=== PATIENT | female | born 1990 | race Two or more races ===

== ENCOUNTER 2016-07-27 12:19 | Emergency (ER) | payer SELFPAY ==
[~2016-07-27] VITALS: Ht 165.1 cm; Wt 113.4 kg
[2016-07-27] MEDS ORDERED: ONDANSETRON PF 4 MG/2 ML VIAL. IV ONE ×2 (13:45→15:00)
[2016-07-27] MEDS ORDERED: KETOROLAC TROMETHAMINE 30 MG/ML SYRINGE. IV ONE (13:45)
[2016-07-27 13:50] LABS: BILIRUBIN,URINE NEGATIVE (NEG); GLUCOSE,URINE NEGATIVE (NEG); NITRITE,URINE NEGATIVE (NEG); PH,URINE 5.5; PROTEIN,URINE NEGATIVE (NEG-TRACE); UROBILINOGEN,URINE 0.2 mg/dL (0.2 mg/dL)
[2016-07-27 13:59] LABS: BACTERIA,URINE 0 /HPF (0-FEW); RBC,URINE 0 /HPF (0-2); SQUAMOUS EPITHELIAL CELL,UR MOD /LPF; WBC,URINE 20-40 /HPF (0-4)
[2016-07-27 14:23] LABS: OBC FLU VALID
--- NOTE | 2016-07-27 15:10 | EKG ---
[facility] [address] [place] [address] Test Date: 2016-07-27 Test Time: 14:25:15 Pat Name: DRAKE MCELROY Department: Room: Gender: F [employer]: : 1990 Requested By: EDEN HODGES Order Number: [id number] Reading MD: Katarina Urias Measurements Intervals [place] Rate: 73 P: 17 MO: 170 QRS: 46 QRSD: 102 T: 8 QT: 412 QTc: 458 Interpretive Statements SINUS RHYTHM QRS(T) CONTOUR ABNORMALITY CONSIDER INFERIOR MYOCARDIAL DAMAGE ABNORMAL ECG RI6.01 No previous ECG available for comparison Electronically Signed On 07-29-2016 20:22:49 [employer] by Katarina Urias
[2016-07-27 15:36] LABS: BASO % 0 % (0-3); EOS % 1 % (0-3); HEMATOCRIT 28.7 % (36.0-47.0); HEMOGLOBIN 8.1 g/dL (12.0-15.5); LYMPH # 1.7 x10^3/uL (1.0-4.8); LYMPH % 22 % (24-48); MEAN CORPUSCULAR HEMOGLOBIN 19 pg (25-35); MEAN CORPUSCULAR HGB CONC 28 g/dL (31-37); MEAN CORPUSCULAR VOLUME 69 fL (79-100); MONO % 4 % (0-9); NEUT % 73 % (31-73); PLATELET COUNT 277 x10^3/uL (140-400); RED BLOOD COUNT 4.17 x10^6/uL (3.50-5.40); RED CELL DISTRIBUTION WIDTH 17.9 % (11.5-14.5); WHITE BLOOD COUNT 7.7 x10^3/uL (4.0-11.0)
[2016-07-27 15:44] LABS: CALCIUM 8.6 mg/dL (8.5-10.1); CREATININE 0.6 mg/dL (0.6-1.0); GFR 119.9; POTASSIUM 3.3 mmol/L (3.5-5.1)
[2016-07-27 15:50] LABS: ALBUMIN 3.3 g/dL (3.4-5.0); ALBUMIN/GLOBULIN RATIO 0.7 (1.0-1.7); TOTAL BILIRUBIN 0.2 mg/dL (0.2-1.0); TOTAL PROTEIN 8.1 g/dL (6.4-8.2)
--- NOTE | 2016-07-27 16:15 | RAD ---
Abdomen series with chest, 3 views, 07/27/2016: History: Vomiting and abdominal pain Gas is present in scattered portions of the colon a nonspecific pattern. No free air seen in the abdomen. There is no evidence of organomegaly or abnormal abdominal calcification. The heart size is normal. The lungs are clear. There is no evidence of pleural fluid. IMPRESSION: No acute abdominal abnormality is detected.
[2016-07-27 16:59] LABS: PLT ESTIMATE ADEQUATE (ADEQUATE); POLYCHROMASIA SLIGHT
[2016-07-27 17:00] LABS: ANISOCYTOSIS SLIGHT; HYPOCHROMIA MARKED; MICROCYTOSIS MARKED; STOMATOCYTES MOD
[2016-07-27] MEDS ORDERED: ONDA4TAB7 PO (17:09)
[2016-07-27] MEDS ORDERED: DICY10CA53 PO (17:09)
[2016-07-27] MEDS ORDERED: FERR-26 PO (17:11)
[2016-07-27 17:40] VITALS: BP 129/62
--- NOTE | 2016-07-27 19:17 | ED.ADGEN ---
Past Medical History Past Medical History: Anemia, Depression Past Surgical History: No Surgical History Alcohol Use: Occasionally Drug Use: Marijuana Adult General Chief Complaint Chief Complaint: MULTIPLE COMPLAINTS HPI HPI Patient is a 26 year old woman, with a history of anemia, presumed secondary to heavy menses, who presents emergency that began yesterday. Patient states she was nauseous for the past several days, been experiencing vomiting and abdominal cramping late last night into this morning. Her last episode of emesis was several hours ago. No diarrhea. States she's regular bowel movements that occurred this morning. Denies any fevers, any chills, any weakness emesis or tingling, any bad food exposures. 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 No recent travel or surgery, does not take any medications regular basis. Review of Systems Review of Systems Constitutional: Denies fever or chills. [] Eyes: Denies change in visual acuity. [] HENT: Denies nasal congestion or sore throat. [] Respiratory: Denies cough or shortness of breath. [] Cardiovascular: Denies chest pain or edema. [] GI: Denies abdominal pain, nausea, vomiting, bloody stools or diarrhea. [] : Denies dysuria. [] Musculoskeletal: Denies back pain or joint pain. [] Integument: Denies rash. [] Neurologic: Denies headache, focal weakness or sensory changes. [] Endocrine: Denies polyuria or polydipsia. [] Lymphatic: Denies swollen glands. [] Psychiatric: Denies depression or anxiety. [] Current Medications Current Medications Current Medications Medications (Trade) Dose Ordered Sig/Keyana Start Time Stop Time Status Last Admin Dose Admin Ketorolac Tromethamine (Toradol) 10 mg 1X ONCE 07/27/16 13:45 07/27/16 13:46 DC 07/27/16 14:24 10 MG Ondansetron HCl (Zofran) 4 mg 1X ONCE 07/27/16 15:00 07/27/16 15:01 DC Allergies Allergies Allergies Coded Allergies Type Severity Reaction Last Updated Verified No Known Drug Allergies 07/27/16 No Physical Exam Physical Exam Constitutional: Well developed, well nourished, no acute distress, non-toxic appearance. [] HENT: Normocephalic, atraumatic, bilateral external ears normal, oropharynx moist, no oral exudates, nose normal. [] Eyes: PERRLA, EOMI, conjunctiva normal, no discharge. [] Neck: Normal range of motion, no tenderness, supple, no stridor. [] Cardiovascular:Heart rate regular rhythm, no murmur, S1, S2, rubs or gallops. [] Lungs & Thorax: Bilateral breath sounds clear to auscultation , no wheezing, rhonchi, rales. No chest tenderness or crepitus. [] Abdomen: Bowel sounds normal, soft, minimal tenderness all patient in the perianal region, no rebound, rigidity, no guarding, no masses, no pulsatile masses. [] Skin: Warm, dry, no erythema, no rash. [] Back: No tenderness, no CVA tenderness. [] Extremities: No tenderness, no cyanosis, no clubbing, ROM intact, no edema. [] Neurologic: Alert and oriented X 3, normal motor function, normal sensory function, no focal deficits noted. [] Psychologic: Affect normal, judgement normal, mood normal. [] Current Patient Data Vital Signs Vital Signs Date Time Temp Pulse Resp B/P Pulse Ox O2 Delivery O2 Flow Rate FiO2 07/27/16 17:40 71 16 129/62 100 Room Air 07/27/16 13:15 98.2 98.2 Lab Values Laboratory Tests Test 07/27/16 13:00 07/27/16 13:06 07/27/16 13:55 07/27/16 15:05 Urine Collection Type Unknown Urine Color Yellow Urine Clarity Clear Urine pH 5.5 Urine Specific [place] 1.020 Urine Protein Negativemg/dL (NEG-TRACE) Urine Glucose (UA) Negativemg/dL (NEG) Urine Ketones (Stick) Negativemg/dL (NEG) Urine Blood Negative (NEG) Urine Nitrite Negative (NEG) Urine Bilirubin Negative (NEG) Urine Urobilinogen Dipstick 0.2mg/dL (0.2 mg/dL) Urine Leukocyte Esterase Moderate (NEG) Urine RBC 0/HPF (0-2) Urine WBC 20-40/HPF (0-4) Urine Squamous Epithelial Cells Mod/LPF Urine Transitional Epithelial Cells Few/LPF Urine Bacteria 0/HPF (0-FEW) Urine Mucus Marked/LPF POC Urine HCG, Qualitative Hcg negative (Negative) Influenza Type A Antigen Negative (NEGATIVE) Influenza Type B Antigen Negative (NEGATIVE) White Blood Count 7.7x10^3/uL (4.0-11.0) Red Blood Count 4.17x10^6/uL (3.50-5.40) Hemoglobin 8.1g/dL (12.0-15.5) L Hematocrit 28.7% (36.0-47.0) L Mean Corpuscular Volume 69fL (79-100) L Mean Corpuscular Hemoglobin 19pg (25-35) L Mean Corpuscular Hemoglobin Concent 28g/dL (31-37) L Red Cell Distribution Width 17.9% (11.5-14.5) H Platelet Count 277x10^3/uL (140-400) Neutrophils (%) (Auto) 73% (31-73) Lymphocytes (%) (Auto) 22% (24-48) L Monocytes (%) (Auto) 4% (0-9) Eosinophils (%) (Auto) 1% (0-3) Basophils (%) (Auto) 0% (0-3) Neutrophils # (Auto) 5.6x10^3uL (1.8-7.7) Lymphocytes # (Auto) 1.7x10^3/uL (1.0-4.8) Monocytes # (Auto) 0.3x10^3/uL (0.0-1.1) Eosinophils # (Auto) 0.1x10^3/uL (0.0-0.7) Basophils # (Auto) 0.0x10^3/uL (0.0-0.2) Platelet Estimate Adequate (ADEQUATE) Giant Platelets Few Polychromasia Slight Hypochromasia Marked Anisocytosis Slight Microcytosis Marked Macrocytosis Slight Stomatocytes Mod Sodium Level 141mmol/L (136-145) Potassium Level 3.3mmol/L (3.5-5.1) L Chloride Level 104mmol/L (98-107) Carbon Dioxide Level 27mmol/L (21-32) Anion Gap 10 (6-14) Blood Urea Nitrogen 5mg/dL (7-20) L Creatinine 0.6mg/dL (0.6-1.0) Estimated GFR (Cockcroft-Gault) 119.9 BUN/Creatinine Ratio 8 (6-20) Glucose Level 78mg/dL (70-99) Calcium Level 8.6mg/dL (8.5-10.1) Total Bilirubin 0.2mg/dL (0.2-1.0) Aspartate Amino Transferase (AST) 11U/L (15-37) L Alanine Aminotransferase (ALT) 24U/L (14-59) Alkaline Phosphatase 95U/L (46-116) Total Protein 8.1g/dL (6.4-8.2) Albumin 3.3g/dL (3.4-5.0) L Albumin/Globulin Ratio 0.7 (1.0-1.7) L Lipase 96U/L (73-393) Laboratory Tests 07/27/16 15:05 Laboratory Tests 07/27/16 15:05 EKG EKG Not indicated. [] Radiology/Procedures Radiology/Procedures [][facility] [address] [place] [address] IMAGING REPORT Signed PATIENT: DRAKE MCELROY ACCOUNT: [id number] : 1990 LOCATION: ER AGE: 26 SEX: F EXAM STATUS: REG ER ORD. PHYSICIAN: EDEN HODGES DO REASON: abd pain/n/v, PROCEDURE: ACUTE ABDOMEN SERIES Abdomen series with chest, 3 views, 07/27/2016: History: Vomiting and abdominal pain Gas is present in scattered portions of the colon a nonspecific pattern. No free air seen in the abdomen. There is no evidence of organomegaly or abnormal abdominal calcification. The heart size is normal. The lungs are clear. There is no evidence of pleural fluid. IMPRESSION: No acute abdominal abnormality is detected. DICTATED and SIGNED BY: LIVE BUCKLEY MD DATE: 07/27/16 1612 CC: EDEN HODGES DO; NO PCP ~ Course & Med Decision Making Course & Med Decision Making Pertinent Labs and Imaging studies reviewed. (See chart for details) patient with no further vomiting in the emergency department receiving Zofran, abdominal pain is resolved. Acute abdominal series obtained which reveals no evidence of concerning findings, laboratory studies reveal a hemoglobin of 8.1, which patient states is consistent with her previous known anemia, no other concerning abnormalities identified. On reevaluation states she is feeling better, has not not have recurrence of her nausea or abdominal pain since she was given Zofran. She states that she was previously told to take iron for her anemia, but has not been taking the pills. I did recommend that she start the pills up, waiting until her stomach is feeling more stable, as she is likely experiencing a viral illness. Patient voiced understanding and agreement, tolerating by mouth fluids in the ED without issue. We discussed bland diet, use of Zofran and Bentyl as needed, rest, and follow-up with [facility] TECHNICIAN. Patient was given contact information for Dr. Cuba of [facility] on the discharged home with precautions and instructions as stated. Dragon Disclaimer Dragon Disclaimer This electronic medical record was generated, in whole or in part, using a voice recognition dictation system. Departure Impression: Primary Impression: Nausea and vomiting Disposition: 01 HOME, SELF-CARE Condition: IMPROVED Scripts Ferrous Sulfate 325 Mg Tablet1 Tab PO BID #60 TAB Ref 0 Prov:EDEN HODGES DO 07/27/16 Dicyclomine Hcl (Bentyl)10 Mg [id number] Mg PO QID #12 TAB Prov:EDEN HODGES DO 07/27/16 Ondansetron Hcl (Zofran)4 Mg Tablet1 Tab PO PRN Q6-8HRS #12 TAB Prov:EDEN HODGES DO 07/27/16 EDEN HODGES DO Jul 27, 2016 19:16
== END 2016-07-27 17:50 | disposition home or self-care (01) ==
LOC: ER 12:19
DX: R11.2 Nausea with vomiting, unspecified (principal); R10.9 Unspecified abdominal pain; F12.10 Cannabis abuse, uncomplicated
CPT/HCPCS: 36415; 74022; 80053; 81001; 81025; 83690; 85007; 85027; 87086; 87804; 93005; 96374; 96375; 99285; J1885; J2405

== ENCOUNTER 2016-11-23 21:26 | Emergency (ER) | payer OTHER ==
[~2016-11-23] VITALS: Ht 165.1 cm; Wt 124.7 kg
[~2016-11-23 21:26] MED LIST: DICY10CA53 PO; FERR-26 PO; ONDA4TAB7 PO
[2016-11-23 21:40] VITALS: BP 157/67
--- NOTE | 2016-11-23 22:13 | PHYS DOC ---
Past Medical History Past Medical History: Anemia, Depression Past Surgical History: No Surgical History Alcohol Use: Occasionally Drug Use: Marijuana Adult General Chief Complaint Chief Complaint: BACK PAIN OR INJURY [facility] HPI Patient is a 26 year old female presents to the emergency department stating that she tripped and fell at work 2 days ago. She states that she landed on her left knee in which she is having pain and discomfort. She states today she developed back pain and discomfort. She states the pain is in the middle of her back at the lumbar spine area. She denies any loss of bowel or bladder. Patient states that she had taken ibuprofen around 3:00 with minimal relief of pain. Patient is able to ambulate on the left knee without any difficulty. 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 Patient denies any numbness or tingling down into the lower extremities. Review of Systems Review of Systems Constitutional: Denies fever or chills [] Eyes: Denies change in visual acuity, redness, or eye pain [] HENT: Denies nasal congestion or sore throat [] Respiratory: Denies cough or shortness of breath [] Cardiovascular: No additional information not addressed in HPI [] GI: Denies abdominal pain, nausea, vomiting, bloody stools or diarrhea [] : Denies dysuria or hematuria [] Musculoskeletal: Patient complaint of lower back pain, left knee pain Integument: Denies rash or skin lesions [] Neurologic: Denies headache, focal weakness or sensory changes [] Endocrine: Denies polyuria or polydipsia [] Allergies Allergies Allergies Coded Allergies Type Severity Reaction Last Updated Verified No Known Drug Allergies 07/27/16 No Physical Exam Physical Exam Constitutional: Well developed, well nourished, no acute distress, non-toxic appearance. [] HENT: Normocephalic, atraumatic, bilateral external ears normal, oropharynx moist, no oral exudates, nose normal. [] Eyes: PERRLA, EOMI, conjunctiva normal, no discharge. [] Neck: Normal range of motion, no tenderness, supple, no stridor. [] Cardiovascular:Heart rate regular rhythm, no murmur [] Lungs & Thorax: Bilateral breath sounds clear to auscultation [] Abdomen: Bowel sounds normal, soft, no tenderness, no masses, no pulsatile masses. [] Skin: Warm, dry, no erythema, no rash. [] Back: Patient with lumbar spine tenderness no crepitus no deformities and no step-offs noted. Extremities: No tenderness noted over the left knee area. No bruising no discoloration noted. No cyanosis, no clubbing, ROM intact, no edema. [] Neurologic: Alert and oriented X 3, normal motor function, normal sensory function, no focal deficits noted. [] Psychologic: Affect normal, judgement normal, mood normal. [] Current Patient Data Vital Signs Vital Signs Date Time Temp Pulse Resp B/P (MAP) Pulse Ox O2 Delivery O2 Flow Rate FiO2 11/23/16 21:40 98.3 75 16 100 Room Air 98.3 Lab Values Laboratory Tests Test 11/23/16 21:24 POC Urine HCG, Qualitative Hcg negative (Negative) EKG EKG [] Radiology/Procedures Radiology/Procedures [address] [place] [address] IMAGING REPORT Signed PATIENT: DRAKE MCELROY ACCOUNT: [id number] : 1990 LOCATION: ER AGE: 26 SEX: F EXAM STATUS: REG ER ORD. PHYSICIAN: RITESH MERIDA APRN REASON: low back pain PROCEDURE: CT LUMBAR SPINE WO CONTRAST CT LUMBAR SPINE WO CONTRAST dated 11/23/2016 10:38 PM Indication: Back pain, recent fallFALL AT WORK 2 DAYS AGO LBP NO SURGERIES NO PREV, evaluate for fracture. Comparison: No comparison is available. Technique: Contiguous axial imaging of the lumbar spine performed with thin cut coronal and sagittal reconstructions. One or more of the following individualized dose reduction techniques were utilized for this examination: 1. Automated exposure control 2. Adjustment of the mA and/or kV according to patient size 3. Use of iterative reconstruction technique Findings: Transitional anatomy at the lumbosacral junction. For the purposes of this exam, the lower most well formed vertebral body will be labeled a lumbarized S1 segment. Using this numbering scheme, there are 5 nonrib-bearing vertebral levels. Small rudimentary disc at the lumbarized S1-S2 level. Sagittal alignment is anatomic. Vertebral body heights are maintained. Mild hypertrophic change of the superior and inferior endplates throughout. Mild broad-based bulging at L4-L5 with mild hypertrophic change of the lower lumbar apophyseal joints. No apparent central canal or foraminal compromise. Images of the retroperitoneum show no significant abnormality. There is a large low density mass left adnexa measures up to 7 cm in size. There is a low-density lesion at the right adnexa that measures 3.6 cm maximum dimension. Trace amount of free pelvic fluid. IMPRESSION: 1. No evidence of fracture or malalignment. 2. Mild lower lumbar spondylosis. 3. Low-density adnexal mass lesions as described above. These are indeterminate but most likely represent ovarian cysts. Pelvic ultrasound could better evaluate. Electronically signed by: Marti Mari MD (11/23/2016 11:08 PM) DICTATED and SIGNED BY: MARTI MARI MD DATE: 11/23/162301 CC: RITESH MERIDA APRN; NO PCP ~ [] Course & Med Decision Making Course & Med Decision Making Pertinent Labs and Imaging studies reviewed. (See chart for details) CT scan was negative, knee x-ray was negative per Dr. Nesbitt. Patient will be discharged home with recommendations for ibuprofen 800 mg every 8 hours. Patient will also be provided with a prescription for Flexeril. She was instructed this medication will cause drowsiness do not take any be alert and oriented. Patient was also encouraged to use ice packs on the area on 20 minutes off 20 minutes several times today. Patient was also encouraged to follow-up with her work comp doctor for any further pain and discomfort. Signs and symptoms to return back to emergency department as been provided. Patient agrees with discharge instructions treatment regimens and follow-up recommendations. [] Dragon Disclaimer Dragon Disclaimer This electronic medical record was generated, in whole or in part, using a voice recognition dictation system. Departure Departure Impression: Primary Impression: Left knee pain Additional Impression: Back pain Disposition: 01 HOME, SELF-CARE Condition: STABLE Referrals: NO PCP (PCP) Patient Instructions: Back Pain, Adult, [id number], Knee Pain, [id number] Additional Instructions: CT scan of your back was negative, x-rays of your knee was negative as well for any bony abnormalities. Ibuprofen 800 mg every 8 hours with food stop taking few develop an upset stomach. Flexeril for muscle spasms and discomfort. This medication will cause drowsiness do not take any be alert and oriented. Ice packs on 20 minutes off 20 minutes several times a day. Follow-up with your work comp doctor he continued have pain and discomfort. Return back to emergency department for signs and symptoms that become worse. Scripts Cyclobenzaprine Hcl (CYCLOBENZAPRINE HCL) 10 Mg Tablet 10 MG PO TID, #30 TAB Prov: RITESH MERIDA APRN 11/23/16 Problem Qualifiers RITESH MERIDA APRN Nov 23, 2016 22:13
--- NOTE | 2016-11-23 23:11 | RAD ---
CT LUMBAR SPINE WO CONTRAST dated 11/23/2016 10:38 PM Indication: Back pain, recent fallFALL AT WORK 2 DAYS AGO LBP NO SURGERIES NO PREV, evaluate for fracture. Comparison: No comparison is available. Technique: Contiguous axial imaging of the lumbar spine performed with thin cut coronal and sagittal reconstructions. One or more of the following individualized dose reduction techniques were utilized for this examination: 1. Automated exposure control 2. Adjustment of the mA and/or kV according to patient size 3. Use of iterative reconstruction technique Findings: Transitional anatomy at the lumbosacral junction. For the purposes of this exam, the lower most well formed vertebral body will be labeled a lumbarized S1 segment. Using this numbering scheme, there are 5 nonrib-bearing vertebral levels. Small rudimentary disc at the lumbarized S1-S2 level. Sagittal alignment is anatomic. Vertebral body heights are maintained. Mild hypertrophic change of the superior and inferior endplates throughout. Mild broad-based bulging at L4-L5 with mild hypertrophic change of the lower lumbar apophyseal joints. No apparent central canal or foraminal compromise. Images of the retroperitoneum show no significant abnormality. There is a large low density mass left adnexa measures up to 7 cm in size. There is a low-density lesion at the right adnexa that measures 3.6 cm maximum dimension. Trace amount of free pelvic fluid. IMPRESSION: 1. No evidence of fracture or malalignment. 2. Mild lower lumbar spondylosis. 3. Low-density adnexal mass lesions as described above. These are indeterminate but most likely represent ovarian cysts. Pelvic ultrasound could better evaluate. Electronically signed by: Cody Mari MD (11/23/2016 11:08 PM)
[2016-11-23] MEDS ORDERED: CYCL10TA2 PO (23:17)
--- NOTE | 2016-11-24 08:35 | RAD ---
KNEE 4 VIEWS LEFT Clinical Indication: left knee pain after fall Comparison: None. Findings: There is no acute fracture or dislocation. The tricompartmental joint spaces are maintained. Tiny marginal osteophytes of the medial and lateral compartments. The patella is in anatomic position. Bipartite patella inferiorly. There is no soft tissue abnormality. There is no joint effusion. IMPRESSION: No acute fracture.
== END 2016-11-23 23:25 | disposition home or self-care (01) ==
LOC: ER 21:26
DX: M25.562 Pain in left knee (principal); M54.5 Low back pain; F32.9 Major depressive disorder, single episode, unspecified; F12.10 Cannabis abuse, uncomplicated; W01.0XXA Fall on same level from slipping, tripping and stumbling without subsequent striking against object, initial encounter; Y93.89 Activity, other specified; Y92.69 Other specified industrial and construction area as the place of occurrence of the external cause; Y99.8 Other external cause status
CPT/HCPCS: 72131; 73564; 81025; 99284-25

== ENCOUNTER 2017-08-14 17:07 | Emergency (ER) | payer SELFPAY, OTHER ==
[2017-08-14] MEDS: IV NORMAL SALINE 1000ML BAG 1,000 ML IV (17:28)
[2017-08-14 17:30] LABS: ADD MAN DIFF? NO
[2017-08-14 17:32] LABS: BASO # 0.1 x10^3/uL (0.0-0.2); BASO % 1 % (0-3); EOS # 0.1 x10^3/uL (0.0-0.7); EOS % 2 % (0-3); HEMATOCRIT 27.2 % (36.0-47.0); HEMOGLOBIN 8.1 g/dL (12.0-15.5); LYMPH # 1.9 x10^3/uL (1.0-4.8); LYMPH % 27 % (24-48); MEAN CORPUSCULAR HEMOGLOBIN 21 pg (25-35); MEAN CORPUSCULAR HGB CONC 30 g/dL (31-37); MEAN CORPUSCULAR VOLUME 71 fL (79-100); MONO # 0.3 x10^3/uL (0.0-1.1); MONO % 4 % (0-9); NEUT # 4.8 x10^3uL (1.8-7.7); NEUT % 67 % (31-73); PLATELET COUNT 307 x10^3/uL (140-400); RED BLOOD COUNT 3.83 x10^6/uL (3.50-5.40); RED CELL DISTRIBUTION WIDTH 18.1 % (11.5-14.5); WHITE BLOOD COUNT 7.2 x10^3/uL (4.0-11.0)
[2017-08-14 17:36] LABS: BILIRUBIN,URINE NEGATIVE (NEG); CLARITY,URINE CLOUDY; COLOR,URINE YELLOW; GLUCOSE,URINE NEGATIVE (NEG); NITRITE,URINE NEGATIVE (NEG); PROTEIN,URINE NEGATIVE (NEG-TRACE); UROBILINOGEN,URINE 0.2 mg/dL (0.2 mg/dL)
[2017-08-14 17:37] LABS: URINE HCG POC HCG NEGATIVE (Negative)
[2017-08-14 17:49] LABS: BACTERIA,URINE MODERATE /HPF (0-FEW); RBC,URINE 0 /HPF (0-2); SQUAMOUS EPITHELIAL CELL,UR MANY /LPF
[2017-08-14 18:02] LABS: ANION GAP 6 (6-14); BLOOD UREA NITROGEN 9 mg/dL (7-20); BUN/CREATININE RATIO 13 (6-20); CALCIUM 8.6 mg/dL (8.5-10.1); CARBON DIOXIDE 27 mmol/L (21-32); CHLORIDE 104 mmol/L (98-107); CREATININE 0.7 mg/dL (0.6-1.0); GFR 99.6; GLUCOSE 109 mg/dL (70-99); POTASSIUM 3.4 mmol/L (3.5-5.1); SODIUM 137 mmol/L (136-145)
[2017-08-14 18:08] LABS: ALBUMIN 3.2 g/dL (3.4-5.0); ALBUMIN/GLOBULIN RATIO 0.7 (1.0-1.7); ALK PHOS 97 U/L (46-116); ALT (SGPT) 18 U/L (14-59); AST (SGOT) 13 U/L (15-37); TOTAL BILIRUBIN 0.2 mg/dL (0.2-1.0); TOTAL PROTEIN 7.8 g/dL (6.4-8.2)
[2017-08-14 18:28] LABS: HYPOCHROMIA MOD; PLT ESTIMATE ADEQUATE (ADEQUATE)
[2017-08-14 18:29] LABS: ANISOCYTOSIS SLIGHT; MICROCYTOSIS MOD; OVALOCYTES FEW
== END 2017-08-14 19:45 | disposition home or self-care (01) ==
LOC: ER 17:07
DX: D64.9 Anemia, unspecified (principal); F32.9 Major depressive disorder, single episode, unspecified; F12.10 Cannabis abuse, uncomplicated
CPT/HCPCS: 36415; 80053; 81001; 81025; 85025; 87086; 93005; 96360; 96361; 99285-25; J7030